=== PATIENT | male | born 1985 | race Caucasian/White ===

== ENCOUNTER 2018-04-30 21:27 | Inpatient (IN) | payer OTHER, MEDICAID ==
[~2018-04-30] VITALS: Ht 170.2 cm; Wt 86.2 kg
[2018-04-30] MEDS ORDERED: ACETAMINOPHEN 500MG TABLET PO ONE (23:15)
[2018-04-30 23:45] LABS: BASOPHILS % 0.5 % (0.0-2.0); HEMATOCRIT. 46.9 % (42.0-52.0); HEMOGLOBIN. 16.8 g/dL (14.0-18.0); LYMPHOCYTES % 34.8 % (20.0-50.0); MEAN CORPUSCULAR HEMOGLOBIN 30.9 pg (28.0-32.0); MEAN CORPUSCULAR VOLUME 86.3 fL (80.0-94.0); MEAN PLATELET VOLUME 9.3 fl (7.4-10.4); NEUTROPHILS % 53.7 % (40.0-76.0); PLATELET 204 x1000/uL (130-400); RED BLOOD CELL COUNT 5.44 mill/uL (4.7-6.1); RED CELL DISTRIBUTION WIDTH 12.2 % (11.6-14.6)
[2018-04-30 23:59] LABS: CHLORIDE 105 mEq/L (98-107)
[2018-05-01 00:04] LABS: ETHANOL BLOOD < 10 mg/dL
[2018-05-01 00:48] LABS: CLARITY URINE CLEAR (CLEAR); COLOR URINE YELLOW (YELLOW); KETONES URINE TRACE (NEGATIVE); LEUKOCYTE ESTERASE URINE NEGATIVE (NEGATIVE); NITRITE URINE NEGATIVE (NEGATIVE); OCCULT BLOOD URINE NEGATIVE (NEGATIVE); PROTEIN URINE NEGATIVE (NEGATIVE); SPECIFIC GRAVITY URINE 1.036 (1.005-1.030); UROBILINOGEN URINE 0.2 E.U./dL (0.2-1.0)
[2018-05-01 00:57] LABS: *AMPHETAMINES SCREEN URINE NEGATIVE (NEGATIVE); *BARBITURATES SCREEN URINE NEGATIVE (NEGATIVE); *BENZODIAZEPINES SCREEN URINE NEGATIVE (NEGATIVE); *COCAINE SCREEN URINE NEGATIVE (NEGATIVE)
[2018-05-01 00:58] LABS: CANNABINOID URINE SCREEN NEGATIVE (NEGATIVE); METHADONE URINE SCREEN NEGATIVE (NEGATIVE); OPIATES URINE SCREEN NEGATIVE (NEGATIVE); PHENCYCLIDINE URINE SCREEN NEGATIVE (NEGATIVE)
[2018-05-01] MEDS ORDERED: ACETAMINOPHEN 325MG TABLET PO PRN (02:00)
[2018-05-01] MEDS ORDERED: ONDANSETRON HCL 4MG/2ML INJ IV PRN (02:00)
[2018-05-01] MEDS ORDERED: MAGNESIUM/ALUMINUM HYDROXIDE/SIMETHICONE 30ML UDC PO PRN (02:00)
[2018-05-01] MEDS: SODIUM CHLORIDE 0.9% INJ 3ML FLUSH IVF SCH ×2 (06:10→13:23)
[2018-05-01] MEDS ORDERED: ASPIRIN 81MG EC TABLET PO SCH (09:00)
[2018-05-01 10:05] VITALS: BP 137/82
[2018-05-01 10:10] VITALS: BP 137/82
[2018-05-01] MEDS ORDERED: INFLUENZA VIRUS VACCINE(AFLURIA) 0.5ML SYR IM ONE (11:30)
[2018-05-01 12:00] VITALS: BP 123/89
[2018-05-01] MEDS ORDERED: IBUPROFEN 600MG TABLET PO SCH (14:45)
[2018-05-01 14:58] VITALS: BP 123/78
== END 2018-05-01 15:51 | disposition home or self-care (01) | DRG 47 ==
LOC: ER 21:27 → 7WST 05-01 00:37 → ENRESERV 05-01 06:46
PROVIDERS: ADMIT Internal Medicine; ATTEND Internal Medicine
DX: G45.9 Transient cerebral ischemic attack, unspecified (principal); F17.200 Nicotine dependence, unspecified, uncomplicated; G51.0 Bell's palsy
CPT/HCPCS: 36415; 70551; 80061; 80305; 90686; 99285; G0482

== ENCOUNTER 2020-06-27 18:54 | Emergency (ER) | payer MEDICAID, OTHER ==
[~2020-06-27] VITALS: Ht 167.6 cm; Wt 82.0 kg
[2020-06-27] MEDS ORDERED: FLUORESCEIN SODIUM 1MG/STRIP BOTHEYE ONE (20:45)
[2020-06-27] MEDS ORDERED: TETRACAINE 0.5% OPHTH DROPS 4ML BOTHEYE ONE (20:45)
[2020-06-27 21:24] VITALS: BP 132/93
[2020-06-27] MEDS ORDERED: ERYT1OIN6 EACHEYE (21:34)
== END 2020-06-27 23:32 | disposition home or self-care (01) ==
LOC: ER 18:54
DX: S05.01XA Injury of conjunctiva and corneal abrasion without foreign body, right eye, initial encounter (principal); H10.89 Other conjunctivitis; X58.XXXA Exposure to other specified factors, initial encounter; Y93.89 Activity, other specified; Y92.69 Other specified industrial and construction area as the place of occurrence of the external cause; Y99.0 Civilian activity done for income or pay
CPT/HCPCS: 71045; 99283

== ENCOUNTER 2022-02-05 15:09 | Emergency (ER) | payer MEDICAID ==
[~2022-02-05] VITALS: Ht 177.8 cm; Wt 87.0 kg
[~2022-02-05 15:09] MED LIST: ERYT1OIN6 EACHEYE
[2022-02-05 15:22] VITALS: BP 171/95
[2022-02-05] MEDS ORDERED: KETOROLAC 60MG/2ML VIAL IM ONE (17:00)
[2022-02-05] MEDS ORDERED: ACETAMINOPHEN 325MG TABLET PO ONE (17:30)
[2022-02-05] MEDS ORDERED: METHOCARBAMOL 500MG TABLET PO ONE (17:30)
[2022-02-05] MEDS ORDERED: LIDO1ADH23 TP (17:58)
[2022-02-05] MEDS ORDERED: CYCL10TA21 MT (17:58)
[2022-02-05] MEDS ORDERED: ACET-2708 MT (17:58)
[2022-02-05] MEDS ORDERED: ACETAMINOPHEN 500MG TABLET PO NR (18:00)
== END 2022-02-05 18:11 | disposition home or self-care (01) ==
LOC: ER 15:09
DX: S93.492A Sprain of other ligament of left ankle, initial encounter (principal); M54.59 Other low back pain; G89.21 Chronic pain due to trauma; R03.0 Elevated blood-pressure reading, without diagnosis of hypertension; W10.8XXA Fall (on) (from) other stairs and steps, initial encounter; Y93.89 Activity, other specified; Y92.89 Other specified places as the place of occurrence of the external cause; Y99.0 Civilian activity done for income or pay
CPT/HCPCS: 96372; 99283; J1885

== ENCOUNTER 2024-08-01 14:08 | Emergency (ER) | payer MEDICAID ==
[~2024-08-01] VITALS: Ht 170.2 cm; Wt 98.0 kg
[~2024-08-01 14:08] MED LIST changes: +ACET-2708 MT; +CYCL10TA21 MT; +LIDO1ADH23 TP
[2024-08-01 14:16] VITALS: O2SAT 100
[2024-08-01 14:29] VITALS: BP 143/93; PULSE 102; RESP 16; TEMP 36.9; O2SAT 99
[2024-08-01] MEDS: IBUPROFEN 400MG TABLET PO ONE (15:52)
[2024-08-01] MEDS: ACETAMINOPHEN 325MG TABLET PO ONE (15:52)
[2024-08-01] MEDS: LIDOCAINE 5% PATCH TOP SCH (15:53)
[2024-08-01] MEDS ORDERED: LIDO700A30 TP (17:19)
[2024-08-01] MEDS ORDERED: NAPR-681 MT (17:19)
== END 2024-08-01 18:01 | disposition home or self-care (01) ==
LOC: ER 14:08
DX: M25.511 Pain in right shoulder (principal); M25.572 Pain in left ankle and joints of left foot; I10 Essential (primary) hypertension
CPT/HCPCS: 73030; 73600; 99284

== ENCOUNTER 2025-02-15 19:52 | Emergency (ER) | payer MEDICAID ==
[~2025-02-15] VITALS: Ht 170.2 cm; Wt 99.0 kg
[~2025-02-15 19:52] MED LIST changes: +LIDO700A30 TP; +NAPR-681 MT
[2025-02-15 20:27] VITALS: O2SAT 99
[2025-02-15] MEDS ORDERED: KETOROLAC 15MG/ML VIAL IM ONE (21:15)
[2025-02-15] MEDS ORDERED: NAPR-1176 MT (22:44)
[2025-02-15] MEDS ORDERED: LIDO-53 TP (22:44)
[2025-02-15] MEDS: KETOROLAC 15MG/ML VIAL IM NR (23:00)
[2025-02-15] MEDS: LIDOCAINE 5% PATCH TOP SCH (23:00)
[2025-02-15 23:16] VITALS: BP 128/88; PULSE 94; RESP 16; TEMP 36.9; O2SAT 99
== END 2025-02-15 23:19 | disposition home or self-care (01) ==
LOC: ER 19:52
DX: M25.511 Pain in right shoulder (principal); F10.90 Alcohol use, unspecified, uncomplicated; Z79.1 Long term (current) use of non-steroidal anti-inflammatories (NSAID); Y90.9 Presence of alcohol in blood, level not specified
CPT/HCPCS: 99283; 73030; 96372; J1885